=== PATIENT | male | born 2000 | race Caucasian/White ===

== ENCOUNTER 2019-12-07 12:17 | Emergency (ER) | payer MEDICAID, SELFPAY ==
[~2019-12-07] VITALS: Ht 170.2 cm; Wt 80.7 kg
[2019-12-07 12:17] VITALS: BP 127/79; Ht 170.2 cm; Wt 80.7 kg
== END 2019-12-07 13:00 | disposition home or self-care (01) ==
LOC: ED 12:17
DX: R05 Cough (principal); Z20.828 Contact with and (suspected) exposure to other viral communicable diseases
CPT/HCPCS: U0003-CS